=== PATIENT | male | born 2000 | race Caucasian/White ===

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

== ENCOUNTER 2024-01-28 19:02 | Emergency (ER) | payer OTHER ==
[~2024-01-28] VITALS: Ht 177.8 cm; Wt 78.0 kg
[~2024-01-28 19:02] MED LIST: VIST25 MT
[2024-01-28 19:11] VITALS: TEMP 98.4; O2SAT 98
[2024-01-28 20:07] LABS: BASOPHILS % 0.4 % (0.0-2.0); EOSINOPHILS % 0.2 % (0.0-5.0); HEMATOCRIT. 44.5 % (42.0-52.0); HEMOGLOBIN. 15.5 g/dL (14.0-18.0); LYMPHOCYTES % 26.4 % (20.0-50.0); MEAN CORPUSCULAR HEMOGLOBIN 31.5 pg (28.0-32.0); MEAN CORPUSCULAR HGB CONC 34.8 g/dL (31.0-37.0); MEAN CORPUSCULAR VOLUME 90.5 fL (80.0-94.0); MEAN PLATELET VOLUME 7.3 fl (7.4-10.4); MONOCYTES % 8.4 % (2.0-8.0); NEUTROPHILS % 64.6 % (40.0-76.0); PLATELET 368 x1000/uL (130-400); RED BLOOD CELL COUNT 4.91 mill/uL (4.7-6.1); RED CELL DISTRIBUTION WIDTH 14.9 % (11.6-14.6); WHITE BLOOD COUNT 9.2 x1000/uL (4.5-11.0)
[2024-01-28 20:12] LABS: CLARITY URINE CLEAR (CLEAR); COLOR URINE YELLOW (YELLOW); GLUCOSE URINE NEGATIVE (NEGATIVE); KETONES URINE 2+ (NEGATIVE); LEUKOCYTE ESTERASE URINE NEGATIVE (NEGATIVE); NITRITE URINE NEGATIVE (NEGATIVE); OCCULT BLOOD URINE NEGATIVE (NEGATIVE); PH URINE 6.5 (4.5-8.0); PROTEIN URINE TRACE (NEGATIVE); SPECIFIC GRAVITY URINE 1.028 (1.005-1.030)
[2024-01-28 20:14] LABS: CARBON DIOXIDE 28 mEq/L (21-32); CHLORIDE 102 mEq/L (98-107); POTASSIUM 3.6 mEq/L (3.5-5.1); SODIUM 138 mEq/L (136-145)
[2024-01-28 20:15] LABS: CALCIUM 10.2 mg/dL (8.7-10.4)
[2024-01-28] MEDS: MAGNESIUM/ALUMINUM HYDROXIDE/SIMETHICONE 30ML UDC PO STA (20:15)
[2024-01-28] MEDS: ONDANSETRON 4MG ODT PO STA (20:16)
[2024-01-28 20:20] LABS: GLUCOSE 90 mg/dL (70-105); UREA NITROGEN BLOOD 9 mg/dL (9-23)
[2024-01-28 20:21] LABS: ALANINE AMINOTRANSFERASE 9 IU/L (10-49); ALBUMIN 4.8 g/dL (3.2-4.8); ASPARTATE AMINOTRANSFERASE 17 IU/L (<34)
[2024-01-28 20:22] LABS: BILIRUBIN DIRECT 0.2 mg/dL (<=3.0); BILIRUBIN TOTAL 0.7 mg/dL (0.1-1.0); PROTEIN TOTAL 8.2 g/dL (6.0-8.3)
[2024-01-28 20:34] LABS: BACTERIA URINE TRACE; RBC URINE NONE SEEN /hpf (0-2); SQUAMOUS EPITHELIAL CELL URINE RARE /lpf (RARE/1+); WBC URINE 0-2 /hpf (0-2)
[2024-01-28] MEDS ORDERED: SIME180C70 MT (21:07)
[2024-01-28] MEDS ORDERED: ONDA4TAB11 PO (21:07)
[2024-01-28 21:21] VITALS: BP 150/84; PULSE 85; RESP 16
== END 2024-01-28 21:20 | disposition home or self-care (01) ==
LOC: ER 19:02
DX: K29.70 Gastritis, unspecified, without bleeding (principal); R10.13 Epigastric pain; R11.0 Nausea; F41.9 Anxiety disorder, unspecified; I10 Essential (primary) hypertension; R19.7 Diarrhea, unspecified
CPT/HCPCS: 99283; 80076; 80048; 81003; 83690; 85025; 36415; Q0162

== ENCOUNTER 2024-10-11 21:38 | Emergency (ER) | payer MEDICAID, OTHER ==
[~2024-10-11] VITALS: Ht 177.8 cm; Wt 97.7 kg
[~2024-10-11 21:38] MED LIST changes: +ONDA-239 PO; +SIME180C61 MT
[2024-10-11 21:59] VITALS: BP 149/94; PULSE 98; RESP 17; TEMP 37.5; O2SAT 99
[2024-10-11] MEDS ORDERED: AMOX-494 MT (22:00)
== END 2024-10-11 23:10 | disposition home or self-care (01) ==
LOC: ER 21:38
DX: H66.92 Otitis media, unspecified, left ear (principal); I10 Essential (primary) hypertension; F41.9 Anxiety disorder, unspecified
CPT/HCPCS: 99283

== ENCOUNTER 2024-11-23 20:53 | Emergency (ER) | payer OTHER ==
[~2024-11-23] VITALS: Ht 177.8 cm; Wt 104.0 kg
[~2024-11-23 20:53] MED LIST changes: +AMOX-494 MT
[2024-11-23 21:14] VITALS: TEMP 36.7; O2SAT 98
[2024-11-23 21:19] VITALS: O2SAT 97
[2024-11-24 01:08] VITALS: PULSE 120
[2024-11-24] MEDS: KETOROLAC 15MG/ML VIAL IM ONE (01:08)
[2024-11-24] MEDS: CYCLOBENZAPRINE 10MG TABLET PO ONE (01:08)
[2024-11-24 01:09] VITALS: BP 149/86; RESP 16
[2024-11-24] MEDS: LIDOCAINE 5% PATCH TOP SCH (01:09)
[2024-11-24] MEDS ORDERED: CYCL5TAB3 MT (02:04)
[2024-11-24] MEDS ORDERED: LIDO700A15 TP (02:04)
[2024-11-24] MEDS ORDERED: NAPR-1176 MT (02:04)
== END 2024-11-24 02:59 | disposition home or self-care (01) ==
LOC: ER 21:03
DX: M54.50 Low back pain, unspecified (principal); Z87.19 Personal history of other diseases of the digestive system
CPT/HCPCS: 99283; 96372; 72110; J1885

== ENCOUNTER 2025-04-14 19:31 | Emergency (ER) | payer OTHER ==
[~2025-04-14] VITALS: Ht 177.8 cm; Wt 101.3 kg
[~2025-04-14 19:31] MED LIST changes: +CYCL5TAB3 MT; +LIDO-53 TP; +NAPR-1176 MT
[2025-04-14 19:58] VITALS: O2SAT 100
[2025-04-14 20:15] LABS: BASOPHILS % 0.4 % (0.0-2.0); EOSINOPHILS % 2.0 % (0.0-5.0); HEMATOCRIT. 42.0 % (42.0-52.0); HEMOGLOBIN. 14.5 g/dL (14.0-18.0); LYMPHOCYTES % 40.9 % (20.0-50.0); MEAN PLATELET VOLUME 6.7 fl (7.4-10.4); MONOCYTES % 10.4 % (2.0-8.0); NEUTROPHILS % 46.3 % (40.0-76.0); PLATELET 299 x1000/uL (130-400); RED BLOOD CELL COUNT 4.74 mill/uL (4.7-6.1); RED CELL DISTRIBUTION WIDTH 14.2 % (11.6-14.6)
[2025-04-14 20:31] LABS: CREATININE 1.0 mg/dL (0.6-1.3)
[2025-04-14 20:32] LABS: TROPONIN I HIGH SENSITIVITY < 4 ng/L (3.0-53); UREA NITROGEN BLOOD 12 mg/dL (9-23)
[2025-04-14] MEDS: IBUPROFEN 600MG TABLET PO ONE (21:06)
[2025-04-14 21:07] VITALS: TEMP 37
[2025-04-14 21:31] LABS: INFLUENZA TYPE A Presumptive Negative (Pres. Neg.)
[2025-04-14 21:32] LABS: INFLUENZA TYPE B Presumptive Negative (Pres. Neg.)
[2025-04-14] MEDS ORDERED: IBUP-2028 MT (23:03)
[2025-04-14] MEDS ORDERED: TOPUD MT (23:03)
[2025-04-14] MEDS ORDERED: AMOX1TAB16 MT (23:03)
[2025-04-14 23:20] VITALS: BP 115/76; PULSE 94; RESP 18; O2SAT 98
== END 2025-04-14 23:21 | disposition home or self-care (01) ==
LOC: ER 19:31
DX: H66.91 Otitis media, unspecified, right ear (principal); Z79.899 Other long term (current) drug therapy; Z98.890 Other specified postprocedural states; Z20.822 Contact with and (suspected) exposure to COVID-19
CPT/HCPCS: 36415; 71045; 80048; 84484; 85025; 87070; 87426; 87430; 87804; 93005; 99285

== ENCOUNTER 2025-06-13 12:29 | Emergency (ER) | payer OTHER, MEDICAID ==
[~2025-06-13] VITALS: Ht 177.8 cm; Wt 110.0 kg
[~2025-06-13 12:29] MED LIST changes: +AMOX1TAB16 MT; +IBUP-2028 MT; +TOPUD MT
[2025-06-13 12:48] VITALS: O2SAT 95
[2025-06-13 12:52] LABS: BASOPHILS % 0.5 % (0.0-2.0); EOSINOPHILS % 0.7 % (0.0-5.0); HEMATOCRIT. 45.9 % (42.0-52.0); HEMOGLOBIN. 15.8 g/dL (14.0-18.0); LYMPHOCYTES % 36.3 % (20.0-50.0); MEAN PLATELET VOLUME 7.6 fl (7.4-10.4); MONOCYTES % 9.3 % (2.0-8.0); NEUTROPHILS % 53.2 % (40.0-76.0); PLATELET 406 x1000/uL (130-400); RED BLOOD CELL COUNT 5.17 mill/uL (4.7-6.1); RED CELL DISTRIBUTION WIDTH 14.4 % (11.6-14.6)
[2025-06-13] MEDS: MORPHINE SULFATE 4 MG/ML INJ (FOR IV/IM USE) IV ONE (12:59)
[2025-06-13 13:11] LABS: CREATININE 1.2 mg/dL (0.6-1.3); UREA NITROGEN BLOOD 10 mg/dL (9-23)
[2025-06-13] MEDS: CEFAZOLIN 1000MG PREMIX 50 ML IV ONE (13:27)
[2025-06-13] MEDS: IOHEXOL-300 100 ML BOTTLE ONE (13:36)
[2025-06-13] MEDS: LIDOCAINE HCL/EPINEPHRINE 1%-EPI 1:100,000 20ML VIAL INFIL ONE (13:37)
[2025-06-13] MEDS: LORAZEPAM 1MG TABLET PO SCH (15:02)
[2025-06-13] MEDS: SODIUM CHLORIDE 0.9% 1,000 ML IV ONE (15:02)
[2025-06-13] MEDS ORDERED: AMOX1TAB16 MT (16:24)
[2025-06-13] MEDS: IBUPROFEN 800MG TABLET PO ONE (16:31)
[2025-06-13 16:51] VITALS: BP 140/93; PULSE 105; RESP 24; TEMP 36.9; O2SAT 96
== END 2025-06-13 17:07 ==
LOC: ER 12:29
DX: S31.117A Laceration without foreign body of abdominal wall, left flank without penetration into peritoneal cavity, initial encounter (principal); F41.9 Anxiety disorder, unspecified; Z79.1 Long term (current) use of non-steroidal anti-inflammatories (NSAID); X99.1XXA Assault by knife, initial encounter; Y93.89 Activity, other specified; Y92.89 Other specified places as the place of occurrence of the external cause; Y99.8 Other external cause status
CPT/HCPCS: 80048; 85025; 36415; 71045; 71260; 74177; 96361; 96365; 96375; 99285; Q9967; J0690; J2270; J7030; Z7610 ×2